=== PATIENT | female | born 1960 | race Caucasian/White ===

== ENCOUNTER → 2021-02-14 11:24 | Outpatient (CLI) | payer OTHER, MEDICAID, SELFPAY ==
--- NOTE | 2021-02-14 11:43 | DI.RAD.S_ITS ---
PROCEDURE: XR SHOULDER LT MIN 2V INDICATIONS: left shoulder pain TECHNIQUE: 3 views of the shoulder were acquired. COMPARISON: None. FINDINGS: Bones: No fractures or dislocations. No suspicious bony lesions. Visualized ribs appear intact. Soft tissues: No suspicious soft tissue calcifications. IMPRESSION: Normal for age, source of current shoulder pain symptoms is not seen. Dictated by: Jake Bonilla M.D. on 02/14/2021 at 13:05 Approved by: Jake Bonilla M.D. on 02/14/2021 at 13:05
== END ==
PROVIDERS: Referring Provider Family Medicine; Visit Provider Family Medicine
DX: M25.512 Pain in left shoulder (principal)
CPT/HCPCS: 73030

== ENCOUNTER → 2021-03-28 19:23 | Outpatient (CLI) | payer OTHER, MEDICAID, SELFPAY | PROVIDERS: Referring Provider Family Medicine; Visit Provider Family Medicine | DX: M25.512 Pain in left shoulder (principal); Z53.20 Procedure and treatment not carried out because of patient's decision for unspecified reasons ==

== ENCOUNTER → 2021-04-02 18:32 | Outpatient (CLI) | payer OTHER, MEDICAID, SELFPAY ==
--- NOTE | 2021-04-02 | DI.MRI.S_ITS ---
PROCEDURE: MR SHOULDER LT WO CON INDICATIONS: PAIN IN LEFT SHOULDER TECHNIQUE: Noncontrast oblique coronal T2 fast spin echo with fat saturation, oblique sagittal T1 spin echo and T2 fast spin echo with fat saturation, axial T1 spin echo and T2 fast spin echo with fat saturation through the shoulder. COMPARISON: None. FINDINGS: Rotator cuff: Severe supraspinatus tendinopathy and thickening, with high-grade partial-thickness bursal sided tear. There is also articular surface fraying although no definite full-thickness defect. There is also infraspinatus tendinopathy and thickening involving the anterior fibers and low-grade articular sided partial thickness tear. The teres minor tendon appears intact. Subscapularis tendinopathy and partial-thickness articular sided tear approximately 50% of tendon thickness seen on image 13/10. Borderline subscapularis muscle atrophy although fatty infiltration of the supraspinatus and infraspinatus muscles is present. Bones and bursae: No bone marrow contusions or fractures. Mild acromioclavicular joint degeneration. Acromion demonstrates conventional anatomy, without an os acromiale. Lateral downsloping appearance of the acromion. Severe subacromial-subdeltoid bursitis. Capsule and soft tissues: Labrum: Incidentally noted sublabral foramen and [place] complex, anatomic variant. No intrasubstance fluid signal intensity seen within the labrum to suggest discrete tear. Biceps tendon: Long head of the biceps tendon intact. Rotator interval: Normal signal intensity. Coracohumeral ligament: Intact. IMPRESSION: High-grade partial-thickness rotator cuff tear as above. Borderline subscapularis muscle atrophy. Severe subacromial-subdeltoid bursitis. Lateral downsloping appearance of the acromion. Dictated by: Herb Yoon M.D. on 04/03/2021 at 9:35 Approved by: Herb Yoon M.D. on 04/03/2021 at 10:12
== END ==
PROVIDERS: PCP Family Medicine; Referring Provider Family Medicine; Visit Provider Family Medicine
DX: M25.512 Pain in left shoulder (principal); M75.112 Incomplete rotator cuff tear or rupture of left shoulder, not specified as traumatic; M75.52 Bursitis of left shoulder
CPT/HCPCS: 73221